=== PATIENT | male | born 1970 | race African-American/Black ===

== ENCOUNTER 2018-03-27 18:20 | Emergency (ER) | payer OTHER ==
[2018-03-27 19:20] VITALS: BP 154/93; PULSE 64; TEMP 97.8; BMI 23.7
--- NOTE | 2018-03-27 19:21 | PDOC ---
Rapid Medical Evaluation Time Seen by Provider: 03/27/18 19:17 Medical Evaluation: 03/27/18 19:18 Pt presents for a laceration to the top of his R hand after being cut with metal at work. 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 Does not remember last tetanus shot Exam:1 cm flap laceration to the base of the R 2nd finger dorsally Orders: boostrix Pt to proceed to ED for further evaluation Discharge Disposition - Diagnosis Laceration - Referrals - Patient Instructions - Post Discharge Activity
[2018-03-27] MEDS ORDERED: DIPHTH,PERTUSS(ACELL),TET 0.5 ML DISP.SYRIN IM ONE (19:30)
--- NOTE | 2018-03-27 19:48 | PDOC ---
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 Bleeding is controlled at present. Patient states while screwing in a piece of metal screw moved causing his hand to strike a sharp piece of metal that he was trying to attach to the wall. No recent travel or sick contacts. PAST MEDICAL HISTORY: Denies past medical history SURGICAL HISTORY: Denies ALLERGIES: No known drug allergies REVIEW OF SYSTEMS General/Constitutional: Denies fever or chills. Denies weakness, weight change. HEENT: Denies change in vision. Denies ear pain or discharge. Denies sore throat. Cardiovascular: Denies chest pain or shortness of breath. Respiratory: Denies cough, wheezing, or hemoptysis. Gastrointestinal: Denies nausea, vomiting, diarrhea or constipation. Denies rectal bleeding. Genitourinary: Denies dysuria, frequency, or change in urination. Musculoskeletal: Denies joint or muscle swelling or pain. Denies neck or back pain. Skin and breasts: LAc to right index finger Neurologic: Denies headache, vertigo, loss of consciousness, or loss of sensation. Psychiatric: Denies depression or anxiety. Endocrine: Denies increased thirst. Denies abnormal weight change. Hematologic/Lymphatic: Denies anemia, easy bleeding, or history of blood clots. Allergic/Immunologic: Denies hives or skin allergy. Denies latex allergy. PHYSICAL EXAM General Appearance: Well-appearing, appropriately dressed. No apparent distress , no intoxication. HEENT: EOMI, PERRLA, normal ENT inspection, normal voice, TMs normal, pharynx normal. No conjunctival pallor. No photophobia, scleral icterus. Neck: Supple. Trachea midline. No tenderness, rigidity, carotid bruit, stridor , lymphadenopathy, or thyromegaly. Respiratory/Chest: Lungs CTAB. No shortness of breath, chest tenderness, respiratory distress, accessory muscle use. No crackles, rales, rhonchi, stridor , wheezing, dullness Cardiovascular: RRR. S1, S2. No JVD, murmur, bradycardia, tachycardia. Vascular Pulses: Dorsalis-Pedis (R): 2+, Dorsalis-Pedis (L): 2+ Gastrointestinal/Abdominal: Normal bowel sounds. Abdomen soft, non-distended. No tenderness or rebound tenderness. No organomegaly, pulsatile mass, guarding, hernia, hepatomegaly, splenomegaly. Lymphatic: No adenopathy, tenderness. Musculoskeletal/Extremities: Normal inspection. FROM of all extremities, normal capillary refill. Pelvis Stable. No CVA tenderness. No tenderness to extremities, pedal edema, swelling, erythema or deformity. FROM against resistance. Integumentary: Approximate 2 cm flap laceration presents to the dorsum of the right index finger over the MCP joint. No erythema or drainage. Bleeding controlled. 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 Fully oriented, alert. Appropriate mood/affect. Motor strength 5/5. No appreciable EOM palsy, facial droop or sensory deficit. Past History - Past Medical History Allergies/Adverse Reactions: Allergies Allergy/AdvReac Type Severity Reaction Status Date / Time No Known Allergies Allergy Verified 03/27/18 19:20 Home Medications: Ambulatory Orders Doxycycline Hyclate [Vibramycin -] 100 mg PO BID #14 cap 03/27/18 COPD: No - Suicide/Smoking/Psychosocial Hx Smoking History: Never smoked *Physical Exam - Vital Signs Last Vital Signs Temp Pulse Resp BP Pulse Ox 97.8 F 64 18 154/93 99 03/27/18 19:17 03/27/18 19:17 03/27/18 19:17 03/27/18 19:17 03/27/18 19:17 Medical Decision Making - Medical Decision Making 03/27/18 19:49 A/P: 47-year-old male with laceration to index finger sustained 36 hours ago Wound cleaned Steri-Strips placed Tetanus Antibiotics on discharge *DC/Admit/Observation/Transfer Diagnosis at time of Disposition: Laceration - Discharge Dispostion Disposition: HOME Condition at time of disposition: Stable Decision to Admit order: No - Prescriptions Prescriptions: Doxycycline Hyclate [Vibramycin -] 100 mg PO BID #14 cap - Referrals - Patient Instructions Additional Instructions: Take doxycycline 100mg twice a day until all medications have been completed. Return to the emergency department for any discharge or drainage from the wound , severe pain, redness or swelling, red streaking up her arm, fevers or any other concerns. - Post Discharge Activity Forms/Work/School Notes: Back to Work
== END 2018-03-27 20:24 | disposition home or self-care (01) ==
LOC: JERFT 18:20
PROC: 3E0234Z Introduction of Serum, Toxoid and Vaccine into Muscle, Percutaneous Approach (ICD-10-PCS; principal; 2018-03-27)
DX: S61.210A Laceration without foreign body of right index finger without damage to nail, initial encounter (principal); W26.8XXA Contact with other sharp object(s), not elsewhere classified, initial encounter; Y93.H3 Activity, building and construction; Y92.69 Other specified industrial and construction area as the place of occurrence of the external cause; Y99.0 Civilian activity done for income or pay
CPT/HCPCS: 90715; 99281-25

== ENCOUNTER 2021-07-26 07:19 | Emergency (ER) | payer OTHER ==
[2021-07-26 07:31] VITALS: BP 170/95; PULSE 82; TEMP 97.1; BMI 19.8
[2021-07-26] MEDS ORDERED: KETOROLAC TROMETHAMINE 15 MG/ML VIAL IM ONE (07:48)
[2021-07-26] MEDS ORDERED: LIDOCAINE 5% TOPICAL PATCH TP ONE (07:49)
[2021-07-26] MEDS ORDERED: LIDOCAINE 5% TOPICAL PATCH ONE (07:54)
[2021-07-26] MEDS ORDERED: KETOROLAC TROMETHAMINE 15 MG/ML VIAL ONE (07:54)
[2021-07-26] MEDS ORDERED: LIDOCAINE PATCH REMOVAL MC SCH (22:00)
== END 2021-07-26 09:00 | disposition home or self-care (01) ==
LOC: JERFT 07:19 → JER 07:19 → JERFT 09:00
PROC: 3E0233Z Introduction of Anti-inflammatory into Muscle, Percutaneous Approach (ICD-10-PCS; principal; 2021-07-26)
DX: M54.32 Sciatica, left side (principal)
CPT/HCPCS: 72131-TC; 99284-25

== ENCOUNTER 2022-04-28 20:42 | Inpatient (IN) | payer OTHER ==
[2022-04-28] MEDS ORDERED: IBUPROFEN 400 MG TABLET (FP) PO ONE ×2 (21:33→21:34)
[2022-04-28] MEDS ORDERED: PIPERACILLIN/TAZOB 3.375 GM 3.375 GM in DEXTROSE 5%-WATER - 50 ML IVPB ONE (21:37)
[2022-04-28] MEDS ORDERED: VANCOMYCIN HCL 1,500 MG in DEXTROSE 5%-WATER - 500 ML IVPB ONE (21:39)
[2022-04-28] MEDS ORDERED: PIPERACILLIN/TAZOB 3.375 GM 3.375 GM/50 ML BAG IVPB ONE (21:50)
[2022-04-28 22:14] LABS: BASO % 0.2 % (0-2.0); EOS % 0.4 % (0-4.5); HEMATOCRIT 39.1 % (35.4-49); HEMOGLOBIN 13.6 GM/dL (11.7-16.9); LYMPH % 28.7 % (8-40); MCH 32.8 pg (25.7-33.7); MCHC 34.8 g/dl (32.0-35.9); MEAN CELL VOLUME 94.1 fl (80-96); MEAN PLT VOLUME 7.3 fl (7.5-11.1); MONO % 14.7 % (3.8-10.2); PLATELET COUNT 211 10^3/uL (134-434); RBC 4.15 M/mm3 (4.00-5.60); WHITE BLOOD COUNT 7.7 K/mm3 (4.0-10.0)
[2022-04-28 22:37] LABS: BLOOD UREA NITROGEN 12.2 mg/dL (7-18)
[2022-04-28] MEDS ORDERED: VANCOMYCIN 500 MG VIAL (RESTRICTED TO ID ONLY) ONE (22:39)
[2022-04-28] MEDS ORDERED: VANCOMYCIN PREMIX 1.5 GM 1,500 MG/300 ML BAG IVPB ONE (22:40)
[2022-04-28 22:41] LABS: TOT PROT 7.3 g/dl (6.4-8.2)
[2022-04-28 22:43] LABS: CREATININE 1.1 mg/dL (0.55-1.3)
[2022-04-28] MEDS ORDERED: DIPHTH,PERTUSS(ACELL),TET 0.5 ML DISP.SYRIN IM ONE (23:19)
[2022-04-28 23:48] LABS: ERYTHROCYTE SEDIMENTATION RATE 2 mm/hr (0-20)
[2022-04-29] MEDS ORDERED: ACETAMINOPHEN 325 MG TABLET (FP) PO PRN ×2 (01:26→10:30)
[2022-04-29 03:36] VITALS: BMI 19.4
[2022-04-29] MEDS ORDERED: HEPARIN NA (PORCINE) 5,000 UNITS/ML 1ML VIAL SQ SCH (10:00)
[2022-04-29 10:09] LABS: BASO % 0.3 % (0-2.0); HEMATOCRIT 38.8 % (35.4-49); HEMOGLOBIN 13.3 GM/dL (11.7-16.9); LYMPH % 33.8 % (8-40); MCH 32.5 pg (25.7-33.7); MCHC 34.3 g/dl (32.0-35.9); MEAN CELL VOLUME 94.7 fl (80-96); MEAN PLT VOLUME 7.4 fl (7.5-11.1); NEUT % 52.9 % (42.8-82.8); PLATELET COUNT 203 10^3/uL (134-434); RDW 12.9 % (11.9-15.9); WHITE BLOOD COUNT 5.2 K/mm3 (4.0-10.0)
[2022-04-29] MEDS ORDERED: oxyCODONE HCL 5 MG TABLET PO PRN (10:30)
[2022-04-29 10:34] LABS: CALCIUM 8.9 mg/dL (8.5-10.1)
[2022-04-29 10:36] LABS: BLOOD UREA NITROGEN 9.3 mg/dL (7-18)
[2022-04-29 10:39] LABS: CREATININE 0.8 mg/dL (0.55-1.3)
[2022-04-29] MEDS: CLINDAMYCIN 900 MG PREMIX IVPB 900 MG/50 ML BAG IVPB SCH ×2 (11:03→17:01)
[2022-04-29 19:08] VITALS: BP 146/91; PULSE 60; RESP 18; TEMP 98
[2022-04-30] MEDS ORDERED: PATIENT'S OWN MEDICATION (NON-FORMULARY) (Prednisone [Prednisone 50 Mg Tablets] 50 MG Tabl PO SCH (10:00)
== END 2022-04-29 18:15 | disposition home or self-care (01) | DRG 383 ==
LOC: JER 20:42 → JERBED 21:54 → J5S 04-29 03:49
PROVIDERS: ADMIT Internal Medicine; ATTEND Internal Medicine
DX: L03.114 Cellulitis of left upper limb (principal); S61.412A Laceration without foreign body of left hand, initial encounter; W26.8XXA Contact with other sharp object(s), not elsewhere classified, initial encounter; Y93.89 Activity, other specified; Y92.89 Other specified places as the place of occurrence of the external cause; Y99.8 Other external cause status; R60.9 Edema, unspecified
CPT/HCPCS: 0241U-QW; 36415; 73130-TC-LT-FY; 80048; 80053; 85025; 85651; 86140; 87040; 99285-25; J1644